=== PATIENT | male | born 1985 | race Hispanic/Latino ===

== ENCOUNTER 2016-04-21 05:21 | Emergency (ER) | payer MEDICAID ==
[2016-04-21] MEDS ORDERED: KEPPRA 1,000 MG/NS 0.75% 100ML 100 ML IV ONE (06:18)
[2016-04-21 07:07] LABS: Urine Drugs of Abuse Note Disclamer
[2016-04-21 07:12] LABS: Bilirubin,Urine NEG (Negative); Blood,Urine SM (Negative); Ketones,Urine NEG (Negative); Leukocyte Esterase,Urine NEG (Negative); Nitrite,Urine NEG (Negative); Protein,Urine <15 mg/dL mg/dL (Negative); Urobilinogen,Urine < 2.0 mg/dL (<2.0)
[2016-04-21 07:43] LABS: Basophils % (Auto) 0.9 % (0.0-1.8); Eosinophils % (Auto) 2.9 % (0.0-4.3); Hematocrit 45.6 % (35.5-45.6); Hemoglobin 14.9 gm/dl (11.8-15.2); Mean Corpuscular HGB Conc 33 % (32-34); Mean Corpuscular Hemoglobin 31 pg (28-32); Mean Corpuscular Volume 95 fl (84-94); Platelet Count 196 K/mm3 (140-440); Red Blood Count 4.82 M/mm3 (3.65-5.03); Red Cell Distribution Width 13.4 % (13.2-15.2); White Blood Count 7.8 K/mm3 (4.5-11.0)
[2016-04-21 08:00] LABS: BUN/Creatinine Ratio 13.75; Blood Urea Nitrogen 11 mg/dL (9-20); Calcium 8.7 mg/dL (8.4-10.2); Carbon Dioxide 25 mmol/L (22-30); Chloride 103.4 mmol/L (98-107); Glucose 89 mg/dL (75-100); Potassium 3.8 mmol/L (3.6-5.0); Sodium 141 mmol/L (137-145)
[2016-04-21 08:07] LABS: Anion Gap 16 mmol/L
--- NOTE | 2016-04-21 08:10 | Emergency Department Report ---
HPI - General Chief Complaint: Seizure Time Seen by Provider: 04/21/16 06:16 - HPI HPI: Chief complaint: Seizure HPI: Patient with a known seizure disorder who according to his mother came home for clot this morning and had a seizure lasting 2-3 minutes. Patient is noncompliant with his seizure medication. Mode of arrival: [EMS] Source: [Patient] nursing note and patient's mother Began: Prior to admission Duration: 2-3 minutes Context: See above Quality: Pain-free Severity: 0 out of 10 Improved with: Nothing Worsened with: Nothing Associated signs and symptoms: None 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 - Surgical History Past Surgical History?: No - Social History Smoking Status: Current Every Day Smoker Substance Use Type: Alcohol - Medications Home Medications: Home Medications Medication Instructions Recorded Confirmed Last Taken Type clonazePAM 2 mg PO TID PRN #20 tablet 10/07/15 04/21/16 02/04/16 Rx levETIRAcetam [Keppra TAB] 500 mg PO BID #60 tablet 04/21/16 Unknown Rx ED Review of Systems ROS: Stated complaint: SEIZURE Other details as noted in HPI ROS Constitutional: No fever ENT: No uri symptoms Cardiovascular: No chest pain Respiratory: No sob or cough GI: No nausea vomiting or diarrhea : No dysuria frequency or urgency, Skin: No rash Neuro: No focal weakness or numbness Valdemar/lymph: No edema Musculoskeletal: No injuries Physical Exam - Physical Exam Vital Signs: Vital Signs 04/21/16 04/21/16 04/21/16 05:36 05:40 05:47 Pulse Rate 58 L 56 L Respiratory 18 18 18 Rate Blood Pressure 97/58 O2 Sat by Pulse 100 99 99 Oximetry 04/21/16 04/21/16 04/21/16 06:00 06:30 06:42 Pulse Rate 58 L Respiratory 19 Rate Blood Pressure 102/57 119/86 119/86 O2 Sat by Pulse 97 91 Oximetry 04/21/16 07:08 Pulse Rate Respiratory Rate Blood Pressure 119/86 O2 Sat by Pulse 81 L Oximetry Physical Exam: GENERAL: The patient is well-developed well-nourished . HEENT: Normocephalic. Atraumatic. Extraocular motions are intact. Patient has moist mucous membranes. The pulse equal round reactive to light. NECK: Supple. No meningitic signs are noted. There is no adenopathy noted. CHEST/LUNGS: Clear to auscultation. There is no respiratory distress noted. HEART/CARDIOVASCULAR: Regular. There is no tachycardia. There is no gallop rub or murmur. ABDOMEN: Abdomen is soft, nontender. Patient has normal bowel sounds. There is no abdominal distention. SKIN: There is no rash. There is no edema. There is no diaphoresis. NEURO: The patient is awake, alert, and oriented. The patient is cooperative. The patient has no focal neurologic deficits. The patient has normal speech. MUSCULOSKELETAL: There is no tenderness or deformity. There is no limitation range of motion. There is no evidence of acute injury. ED Course Vital Signs 04/21/16 04/21/16 04/21/16 05:36 05:40 05:47 Pulse Rate 58 L 56 L Respiratory 18 18 18 Rate Blood Pressure 97/58 O2 Sat by Pulse 100 99 99 Oximetry 04/21/16 04/21/16 04/21/16 06:00 06:30 06:42 Pulse Rate 58 L Respiratory 19 Rate Blood Pressure 102/57 119/86 119/86 O2 Sat by Pulse 97 91 Oximetry 04/21/16 07:08 Pulse Rate Respiratory Rate Blood Pressure 119/86 O2 Sat by Pulse 81 L Oximetry - Reevaluation(s) Reevaluation #1: 04/21/16 08:10 Patient given a gram of Keppra will be discharged home with a prescription for Keppra and follow-up with his primary care doctor. ED Medical Decision Making - Lab Data Result diagrams: 04/21/16 07:26 04/21/16 07:26 Laboratory Tests 04/21/16 04/21/16 06:58 Unknown U Marijuana (THC) Screen Presumptive positive Plasma/Serum Alcohol < 0.01 Critical care attestation.: If time is entered above; I have spent that time in minutes in the direct care of this critically ill patient, excluding procedure time. ED Disposition Clinical Impression: Seizure disorder Disposition: DISCHARGED TO HOME OR SELFCARE Is pt being admited?: No Does the pt Need Aspirin: No Condition: Stable Instructions: Lidocaine (Injection) Prescriptions: levETIRAcetam [Keppra TAB] 500 mg PO BID #60 tablet Referrals: PRIMARY CARE, [Primary Care Provider] - 3-5 Days Time of Disposition: 08:11
[2016-04-21 08:33] VITALS: BP 105/67
== END 2016-04-21 08:36 | disposition home or self-care (01) ==
LOC: ED 05:21
DX: G40.909 Epilepsy, unspecified, not intractable, without status epilepticus (principal); I10 Essential (primary) hypertension; F32.9 Major depressive disorder, single episode, unspecified; F17.200 Nicotine dependence, unspecified, uncomplicated
CPT/HCPCS: 36415; 80048; 80307; 81001; 85025; 96374; 99284; G0480; J1953; 80320

== ENCOUNTER 2017-03-08 21:04 | Emergency (ER) | payer MEDICAID ==
[2017-03-08 22:09] LABS: Basophils % (Auto) 0.6 % (0.0-1.8); Eosinophils % (Auto) 0.7 % (0.0-4.3); Hemoglobin 17.4 gm/dl (11.8-15.2); Mean Corpuscular HGB Conc 34 % (32-34); Mean Corpuscular Hemoglobin 33 pg (28-32); Mean Corpuscular Volume 96 fl (84-94); Platelet Count 248 K/mm3 (140-440); Red Blood Count 5.33 M/mm3 (3.65-5.03); Red Cell Distribution Width 13.5 % (13.2-15.2); White Blood Count 14.5 K/mm3 (4.5-11.0)
[2017-03-08] MEDS ORDERED: ATIVAN IM ONE (22:15)
[2017-03-08 22:26] LABS: Anion Gap 23 mmol/L; BUN/Creatinine Ratio 14; Blood Urea Nitrogen 10 mg/dL (9-20); Calcium 9.4 mg/dL (8.4-10.2); Carbon Dioxide 20 mmol/L (22-30); Chloride 98.2 mmol/L (98-107); Glucose 99 mg/dL (75-100); Potassium 4.1 mmol/L (3.6-5.0); Sodium 137 mmol/L (137-145)
--- NOTE | 2017-03-08 22:48 | Emergency Department Report ---
ED Psych HPI - General Chief Complaint: Psych Stated Complaint: ETOH/SUBSTANCE ABUSE Time Seen by Provider: 03/08/17 21:59 Source: EMS Mode of arrival: Stretcher - History of Present Illness Initial Comments: Patient with history of seizure disorder as well as behavioral issues and psych problems is here after stating that he was drinking someone has been putting meth in his beer he seen any having psychosis but he was awake and alert and oriented 3, no blue no stiff neck no rash no cough or fever Associated Psychiatric Symptoms: racing thoughts, auditory hallucinations, delusions Quality: intermittent, changing over time - Related Data Previous Rx's Medication Instructions Recorded Last Taken Type clonazePAM 2 mg PO TID PRN #20 tablet 10/07/15 02/04/16 Rx levETIRAcetam [Keppra TAB] 500 mg PO BID #60 tablet 04/21/16 Unknown Rx Allergies Allergy/AdvReac Type Severity Reaction Status Date / Time metoclopramide HCl Allergy Unknown Verified 12/20/12 23:00 [From Reglan] chlorpromazine HCl AdvReac Anaphylaxis Verified 12/21/12 00:24 [From Thorazine] haloperidol [From Haldol] AdvReac Anaphylaxis Verified 12/21/12 00:24 haloperidol lactate AdvReac Anaphylaxis Verified 12/21/12 00:24 [From Haldol] lisinopril AdvReac Anaphylaxis Verified 12/21/12 00:24 ED Review of Systems ROS: Stated complaint: ETOH/SUBSTANCE ABUSE Other details as noted in HPI Comment: Unobtainable due to pts medical conditions Constitutional: denies: diaphoresis, fever, malaise, weakness Respiratory: denies: shortness of breath, SOB with exertion, SOB at rest, stridor, wheezing Cardiovascular: denies: chest pain, palpitations, edema, syncope ED Past Medical Hx - Past Medical History Hx Hypertension: Yes Hx Congestive Heart Failure: No Hx Diabetes: No Hx Arthritis: No Hx Seizures: Yes Hx Psychiatric Treatment: Yes (history of overdosing, history of suicidal ideations, depression) Hx Asthma: No Additional medical history: Dystonia, Frontal Lobe Injury 08/19/2002, Cognitive Memory Difficulties since allergic reaction to Lisinopril, 06/2012, 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 - Social History Smoking Status: Never Smoker Substance Use Type: Alcohol, Prescribed - Medications Home Medications: Home Medications Medication Instructions Recorded Confirmed Last Taken Type clonazePAM 2 mg PO TID PRN #20 tablet 10/07/15 04/21/16 02/04/16 Rx levETIRAcetam [Keppra TAB] 500 mg PO BID #60 tablet 04/21/16 Unknown Rx ED Physical Exam - General Limitations: Altered Mental Status General appearance: alert, in no apparent distress, anxious - Head Head exam: Present: atraumatic, normocephalic - Eye Eye exam: Present: PERRL, EOMI - ENT ENT exam: Present: normal exam, normal orophraynx - Neck Neck exam: Present: normal inspection. Absent: meningismus - Respiratory Respiratory exam: Present: normal lung sounds bilaterally. Absent: respiratory distress, wheezes, chest wall tenderness, accessory muscle use - Cardiovascular Cardiovascular Exam: Present: regular rate, normal heart sounds - GI/Abdominal GI/Abdominal exam: Present: soft. Absent: distended, tenderness, guarding, rebound, mass, pulsatile mass - Extremities Exam Extremities exam: Present: normal capillary refill. Absent: calf tenderness - Back Exam Back exam: Absent: CVA tenderness (L) - Neurological Exam Neurological exam: Absent: motor sensory deficit - Psychiatric Psychiatric exam: Present: anxious, manic, other (psychosis flight of ideas) ED Course Vital Signs 03/08/17 21:39 Temperature 97.5 F L Pulse Rate 115 H Respiratory 22 Rate Blood Pressure 145/87 [Left] O2 Sat by Pulse 100 Oximetry ED Medical Decision Making - Lab Data Result diagrams: 03/08/17 21:52 03/08/17 21:52 - Radiology Data Radiology results: image reviewed interpreted by me: No acute process - Medical Decision Making Patient will need 1013 and psych evaluation given his psychosis flight of ideas and delusions, drug screen was positive for meth and benzos was some alcohol as well. Patient read further evaluation for polysubstance abuse and psychosis he is medically cleared for psychiatric eval, was noted to have a mildly elevated WBC but no evidence of infection this likely is due to stress chest x-ray and urinalysis were negative patient is awaiting further evaluation by psychiatry in the ED Critical care attestation.: If time is entered above; I have spent that time in minutes in the direct care of this critically ill patient, excluding procedure time. ED Disposition Clinical Impression: Psychosis, Polysubstance abuse Disposition: [id number]/TX-[id number] PSY HOSP/PSY UNIT Is pt being admited?: Yes Condition: Stable Referrals: ANUSHA VOSS MD [Primary Care Provider] - 3-5 Days Time of Disposition: 00:55
[2017-03-08 22:56] LABS: Urine Drugs of Abuse Note Disclamer
[2017-03-08 23:03] LABS: Bilirubin,Urine NEG (Negative); Blood,Urine NEG (Negative); Ketones,Urine TR mg/dL (Negative); Leukocyte Esterase,Urine TR (Negative); Mucus,Urine FEW /HPF; Nitrite,Urine NEG (Negative); Protein,Urine <15 mg/dL mg/dL (Negative); Urobilinogen,Urine < 2.0 mg/dL (<2.0)
[2017-03-08] MEDS ORDERED: BENADRYL PO ONE (23:54)
[2017-03-08] MEDS ORDERED: NACL 0.9% 1000 ML 1,000 ML IV ONE (23:56)
[2017-03-09] MEDS ORDERED: ATIVAN IV ONE (01:50)
[2017-03-09] MEDS ORDERED: ATIVAN ONE (05:32)
[2017-03-09] MEDS ORDERED: GEODON IM ONE ×2 (08:39→09:04)
[2017-03-09] MEDS ORDERED: KEPPRA PO SCH (10:00)
--- NOTE | 2017-03-09 16:47 | Consultation ---
History of Present Illness - Reason for Consult Reason for consult: charley consult - Chief Complaint Chief complaint: cc" psychiatric" 31 year old WM presents to [facility]. We have been asked to see the patient for mental health eval. Patient was somewhat sedated when I spoke to him after receiving a PRN earlier that day. He notes that he brought himself to after being worried that someone had spiked his etoh drink with meth. Despite this, today he notes no depression or psychosis. He denies any SI/HI/AH /VH. He states that he has no grandiosity or delusional thought process. He denies any current withdrawal symptoms. He states that he doesn't use illicit drugs but does admit to drinking 2-3 beer at a time but not daily. He also notes no mental health history but states that he's been on thorazine before. Medications and Allergies Allergies Allergy/AdvReac Type Severity Reaction Status Date / Time metoclopramide HCl Allergy Unknown Verified 12/20/12 23:00 [From Reglan] chlorpromazine HCl AdvReac Anaphylaxis Verified 12/21/12 00:24 [From Thorazine] haloperidol [From Haldol] AdvReac Anaphylaxis Verified 12/21/12 00:24 haloperidol lactate AdvReac Anaphylaxis Verified 12/21/12 00:24 [From Haldol] lisinopril AdvReac Anaphylaxis Verified 12/21/12 00:24 Home Medications Medication Instructions Recorded Confirmed Last Taken Type clonazePAM 2 mg PO TID PRN #20 tablet 10/07/15 03/09/17 02/04/16 Rx levETIRAcetam [Keppra TAB] 500 mg PO BID #60 tablet 04/21/16 03/09/17 Unknown Rx Active Meds: Active Medications Levetiracetam (Keppra) 500 mg PO BID JONNY Stop: 03/14/17 09:59 Last Admin: 03/09/17 11:56 Dose: 500 mg Past psychiatric history - Past Medical History Past Medical History: seizures, other (states he has broken rib/shoulder history ) - past Psychiatric treatment and history psychiatric treatment history: Inpt: none outpt psych: none no SA history no family history of psych no abuse history - Social History Social history: other (lives with mom and has a good relationship with her, 11th grade [employer], not working, not dating, was [facility]ring at [employer]) Mental Status Exam - Vital signs Last Vital Signs Temp 97.3 F L 03/09/17 01:03 Pulse 98 H 03/09/17 01:03 Resp 18 03/09/17 01:03 BP 145/58 03/09/17 01:03 Pulse Ox 100 03/09/17 01:03 - Exam Orientation: time, place, person Affect: anxious Mood: appropriate Thought content: other (? paranoia) Thought Process: Circumstantial, Tangential Perceptions: none Speech: slow Concentration: distractible Motor activity: restless Level of consciousness: sedated Memory: Intact Interaction: cooperative Mini mental status exam(if necessary): 24-30 (despite the sedation level patient was able to answer majority of my memory/cognition questions) Results Result Diagrams: 03/08/17 21:52 03/08/17 21:52 Abnormal lab results 03/08/17 03/08/17 03/08/17 Range/Units 21:52 21:52 21:52 WBC 14.5 H (4.5-11.0) K/mm3 RBC 5.33 H (3.65-5.03) M/mm3 Hgb 17.4 H (11.8-15.2) gm/dl Hct 51.0 H (35.5-45.6) % MCV 96 H (84-94) fl MCH 33 H (28-32) pg Vinton # 1.0 H (0.0-0.8) K/mm3 Seg Neutrophils % 73.6 H (40.0-70.0) % Seg Neutrophils # 10.7 H (1.8-7.7) K/mm3 Carbon Dioxide 20 L (22-30) mmol/L Creatinine 0.7 L (0.8-1.5) mg/dL Salicylates 0.6 L (2.8-20.0) mg/dL Phenytoin (10.0-20.0) ug/mL 03/08/17 Range/Units 21:52 WBC (4.5-11.0) K/mm3 RBC (3.65-5.03) M/mm3 Hgb (11.8-15.2) gm/dl Hct (35.5-45.6) % MCV (84-94) fl MCH (28-32) pg Vinton # (0.0-0.8) K/mm3 Seg Neutrophils % (40.0-70.0) % Seg Neutrophils # (1.8-7.7) K/mm3 Carbon Dioxide (22-30) mmol/L Creatinine (0.8-1.5) mg/dL Salicylates (2.8-20.0) mg/dL Phenytoin 1.3 L (10.0-20.0) ug/mL All other labs normal. Assessment and Plan Assessment and plan: 31 year old WM presents to [facility]. We have been asked to see the patient for mental health eval. Patient was somewhat sedated when I spoke to him after receiving a PRN earlier that day. He notes that he brought himself to after being worried that someone had spiked his etoh drink with meth. Patient denied all symptoms of psychosis. He denied any depression or judy A/P 1. psychosis secondary to substances (unknown)- will obtain collateral from mom before making any judgments on whether this patient has a true psych history or his thoughts are being influenced by substance placed into his etoh drink. 1. eval for unknown substance use- will need collateral. patient is positive for thc, amph, benzo- need to determine true extent of his use. he also notes that he takes klonopin at home for his seizures- therefore there is a possibility that he could go through withdrawal- will need to watch for this while waiting on confirmation that is truly prescribed this med. patient currently being treated with [facility] protocol in meantime for benzo withdrawal.
[2017-03-10] MEDS ORDERED: ATIVAN IM PRN (08:13)
--- NOTE | 2017-03-10 08:16 | Event Note ---
Date: 03/10/17 Patient verbally agitated, aggressive with staff, does not respond to verbal de- escalation techniques, or show of force. Patient ordered for when necessary Ativan, as well as seclusion for his safety and for patient's safety as well. Hospital policies for monitoring will be followed. Vital Signs 03/08/17 03/09/17 03/09/17 21:39 01:03 08:29 Temperature 97.5 F L 97.3 F L 97.9 F Pulse Rate 115 H 98 H 92 H Respiratory 22 18 20 Rate Blood Pressure 145/87 145/58 120/81 [Left] O2 Sat by Pulse 100 100 100 Oximetry 03/09/17 17:38 Temperature Pulse Rate Respiratory 20 Rate Blood Pressure [Left] O2 Sat by Pulse 100 Oximetry Labs 03/08/17 03/08/17 03/08/17 21:33 21:52 21:52 WBC RBC Hgb Hct MCV MCH MCHC RDW Plt Count Lymph % (Auto) Hawkins % (Auto) Eos % (Auto) Baso % (Auto) Lymph # Hawkins # Eos # Baso # Seg Neutrophils % Seg Neutrophils # Sodium 137 Potassium 4.1 Chloride 98.2 Carbon Dioxide 20 L Anion Gap 23 BUN 10 Creatinine 0.7 L Estimated GFR > 60 BUN/Creatinine Ratio 14 Glucose 99 POC Glucose 84 Calcium 9.4 Urine Color Urine Turbidity Urine pH Ur Specific [place] Urine Protein Urine Glucose (UA) Urine Ketones Urine Blood Urine Nitrite Urine Bilirubin Urine Urobilinogen Ur Leukocyte Esterase Urine WBC (Auto) Urine RBC (Auto) Urine Mucus Salicylates Urine Opiates Screen Urine Methadone Screen Acetaminophen Ur Barbiturates Screen Phenytoin Ur Phencyclidine Scrn Ur Amphetamines Screen U Benzodiazepines Scrn Urine Cocaine Screen U Marijuana (THC) Screen Drugs of Abuse Note Plasma/Serum Alcohol 0.03 03/08/17 03/08/17 03/08/17 21:52 21:52 21:52 WBC 14.5 H RBC 5.33 H Hgb 17.4 H Hct 51.0 H MCV 96 H MCH 33 H MCHC 34 RDW 13.5 Plt Count 248 Lymph % (Auto) 18.0 Hawkins % (Auto) 7.1 Eos % (Auto) 0.7 Baso % (Auto) 0.6 Lymph # 2.6 Hawkins # 1.0 H Eos # 0.1 Baso # 0.1 Seg Neutrophils % 73.6 H Seg Neutrophils # 10.7 H Sodium Potassium Chloride Carbon Dioxide Anion Gap BUN Creatinine Estimated GFR BUN/Creatinine Ratio Glucose POC Glucose Calcium Urine Color Urine Turbidity Urine pH Ur Specific [place] Urine Protein Urine Glucose (UA) Urine Ketones Urine Blood Urine Nitrite Urine Bilirubin Urine Urobilinogen Ur Leukocyte Esterase Urine WBC (Auto) Urine RBC (Auto) Urine Mucus Salicylates 0.6 L Urine Opiates Screen Urine Methadone Screen Acetaminophen < 15.0 Ur Barbiturates Screen Phenytoin Ur Phencyclidine Scrn Ur Amphetamines Screen U Benzodiazepines Scrn Urine Cocaine Screen U Marijuana (THC) Screen Drugs of Abuse Note Plasma/Serum Alcohol 03/08/17 03/08/17 03/08/17 21:52 Unknown Unknown WBC RBC Hgb Hct MCV MCH MCHC RDW Plt Count Lymph % (Auto) Hawkins % (Auto) Eos % (Auto) Baso % (Auto) Lymph # Hawkins # Eos # Baso # Seg Neutrophils % Seg Neutrophils # Sodium Potassium Chloride Carbon Dioxide Anion Gap BUN Creatinine Estimated GFR BUN/Creatinine Ratio Glucose POC Glucose Calcium Urine Color Yellow Urine Turbidity Clear Urine pH 7.0 Ur Specific [place] 1.009 Urine Protein <15 mg/dl Urine Glucose (UA) Neg Urine Ketones Tr Urine Blood Neg Urine Nitrite Neg Urine Bilirubin Neg Urine Urobilinogen < 2.0 Ur Leukocyte Esterase Tr Urine WBC (Auto) 3.0 Urine RBC (Auto) 1.0 Urine Mucus Few Salicylates Urine Opiates Screen Presumptive negative Urine Methadone Screen Presumptive negative Acetaminophen Ur Barbiturates Screen Presumptive negative Phenytoin 1.3 L Ur Phencyclidine Scrn Presumptive negative Ur Amphetamines Screen Presumptive positive U Benzodiazepines Scrn Presumptive positive Urine Cocaine Screen Presumptive negative U Marijuana (THC) Screen Presumptive positive Drugs of Abuse Note Disclamer Plasma/Serum Alcohol
--- NOTE | 2017-03-10 08:18 | XRay Report ---
FINAL REPORT EXAM: XRAY CHEST SINGLE VIEW HISTORY: x TECHNIQUE: PA and lateral chest radiographs PRIORS: 04/12/2015 FINDINGS: No mediastinal shift. Cardiac silhouette is not enlarged. The most inferior portions of the lungs are excluded from the field of view. No pneumothorax, effusion, or focal pulmonary opacity. No acute skeletal finding. IMPRESSION: No focal pulmonary opacity.
[2017-03-10 12:13] VITALS: BP 138/96
[2017-03-10] MEDS ORDERED: KEPPRA PO SCH (15:00)
--- NOTE | 2017-03-10 15:33 | Progress Note ---
Subjective - Reason for Consult Consult date: 03/10/17 Reason for consult: Psychiatry Follow-up - Chief Complaint Chief complaint: "My marijuana and drink was laced with meth" 31 year old WM presents to [facility]. Today patient is calm and calm during the assessment. He is adamant about not having a mental health dx. Per collateral from him mother Seymour Covarrubias at [phone], she stated that her son's drink and his marijuana cigarette was laced with "meth." She stated that' s the reason he was acting strange on arrival to [facility]. She confirmed that her son does not have a mental health dx. She denies that he son use any other recreational drug other than marijuana. She stated that he has a hx of seizures and dystonia that's managed by his neurologist. The patient denies SI/HI's and AVH's. He stated that he smoke marijuana often and take Klonopin. Mental Status Exam - Vital signs Last Vital Signs Temp 98.2 F 03/10/17 07:58 Pulse 115 H 03/10/17 07:58 Resp 20 03/10/17 10:39 BP 138/96 03/10/17 07:58 Pulse Ox 100 03/10/17 10:39 - Exam Narrative exam: MSE: Appearance: calm, cooperative Behavior: regular eye contact Speech: regular rate and tone Mood: "okay" Affect: congruent to mood Thought Process: linear Thought Content: denies SI/HI's and AVH's Motor Activity: sitting up in bed Cognition: A/O x3 Insight: fair Judgment: fair Assessment and Plan Impression: Substance Induced Psychosis. Substance Use DO (marijuana). Today patient is calm and calm during the assessment. The psychosis has resolved. Positive for benzos, marijauna, and amphetamines. Medical: Per collateral hx of Seizures/Dystonia Recommendation/Plan: Rescind 1013. Patient can follow-up with his Neurologist once discharged. Log Turner involvement, patient will need transportation to his residence. Discussed the importance to abstain from recreational drug use with patient.
== END 2017-03-10 17:50 ==
LOC: EEVIPCON 21:04 → ED 21:04
DX: F29 Unspecified psychosis not due to a substance or known physiological condition (principal); F19.10 Other psychoactive substance abuse, uncomplicated; I10 Essential (primary) hypertension
CPT/HCPCS: 36415; 71020; 80048; 80185; 80307; 81001; 82962; 85025; 96361; 96372; 96374; 99285; G0480; J2060; J3486; J7030; 80320

== ENCOUNTER 2020-11-25 17:58 | Emergency (ER) | payer MEDICAID ==
[2020-11-25 20:23] VITALS: BP 129/89
--- NOTE | 2020-11-25 20:34 | Event Note ---
ED Screening Note Date of service: 11/25/20 Time: 20:31 ED Screening Note: 35-year-old male patient with history of seizure disorder presents to the emergency department via EMS status post seizure. Patient states he was at the grocery store when his seizure occurred. Patient recalls being in a standing position prior to onset of seizure activity. Patient is unsure how long his seizure lasted. States he has been out of all of his medications for approximately 24 hours. He is currently complaining of nausea and diffuse body aches. Takes Vimpat for seizures. He is also on gabapentin, clonazepam, and tramadol. Tachycardic in triage. General: Awake, appropriately interactive, no acute distress. Neck: Supple. Full range of motion intact. Cardiovascular: Normal peripheral perfusion. Pulmonary: No respiratory distress. Patient is speaking normally without use of accessory muscles. Skin: No apparent rashes or lesions. Neurological: No facial asymmetry. Speech is clear. Follows commands. Patient is alert and oriented. Musculoskeletal: Moves all four extremities spontaneously with normal range of motion. Psych: Cooperative. Appropriate mood and affect. Ordered labs and urinalysis. Requested student liaison officer and peripheral IV access. I have greeted and performed a focused rapid initial assessment of this patient. A comprehensive ED assessment and evaluation of the patient, analysis of all test results, and completion of the medical decision-making process will be c onducted by additional ED providers. This initial assessment/diagnostic orders/clinical plan/treatment(s) is/are subject to change based on patients health status, clinical progression and re-assessment. Further treatment and workup at subsequent clinical provider's discretion. Patient/guardian urged not to elope from the ED as their condition may be serious if not clinically assessed and managed.
[2020-11-25 20:53] LABS: Basophils # (Auto) 0.1 K/mm3 (0.0-0.1); Eosinophils # (Auto) 0.2 K/mm3 (0.0-0.4); Eosinophils % (Auto) 3.2 % (0.0-4.3); Hematocrit 43.3 % (35.5-45.6); Hemoglobin 14.6 gm/dl (11.8-15.2); Lymphocytes # (Auto) 2.3 K/mm3 (1.2-5.4); Lymphocytes % (Auto) 30.3 % (13.4-35.0); Mean Corpuscular HGB Conc 34 % (32-34); Mean Corpuscular Volume 95 fl (84-94); Monocytes # (Auto) 0.7 K/mm3 (0.0-0.8); Monocytes % (Auto) 8.8 % (0.0-7.3); Platelet Count 264 K/mm3 (140-440); Red Blood Count 4.53 M/mm3 (3.65-5.03); Red Cell Distribution Width 12.8 % (13.2-15.2)
--- NOTE | 2020-11-25 21:00 | Emergency Department Report ---
HPI - General Chief Complaint: Seizure Time Seen by Provider: 11/25/20 20:42 - HPI HPI: Waiting room The patient is a 35-year-old male present with a chief complaint of seizure. Patient has a history of seizures and states he believes he may have missed his dose of Vimpat last night and today. Patient states he had a seizure today and injured his right forehead during the fall. Patient states his last seizure before today occurred 6 to 8 months ago. 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 - Surgical History Past Surgical History?: No - Family History Family history: no significant - Social History Smoking Status: Current Some Day Smoker (2 cigarettes daily) Substance Use Type: None (Denies illicit drug use) - Medications Home Medications: Home Medications Medication Instructions Recorded Confirmed Last Taken Type clonazePAM 2 mg PO TID PRN #20 tablet 10/07/15 03/09/17 02/04/16 Rx levETIRAcetam [Keppra TAB] 500 mg PO BID #60 tablet 04/21/16 03/09/17 Unknown Rx Lacosamide [Vimpat] 100 mg PO Q12HR #60 tablet 11/25/20 Unknown Rx clonazePAM [clonazePAM Rapdis] 0.25 mg PO BID PRN #2 tab.rapdis 11/25/20 Unknown Rx ED Review of Systems ROS: Stated complaint: SEIZURE Other details as noted in HPI Constitutional: no symptoms reported Eyes: denies: eye pain ENT: denies: throat pain Respiratory: no symptoms reported Cardiovascular: denies: chest pain Endocrine: no symptoms reported Gastrointestinal: denies: abdominal pain Genitourinary: denies: dysuria Musculoskeletal: denies: back pain Neurological: denies: confusion Physical Exam - Physical Exam Vital Signs: Vital Signs 11/25/20 20:18 Temperature 98.0 F Pulse Rate 104 H Respiratory 18 Rate Blood Pressure 129/89 O2 Sat by Pulse 100 Oximetry Physical Exam: GENERAL: The patient is well-developed well-nourished male sitting in chair not appearing to be in acute distress. [] HEENT: Normocephalic. Abrasions to the right side of forehead. Extraocular motions are intact. Patient has moist mucous membranes. NECK: Supple. Trachea midline CHEST/LUNGS: Clear to auscultation. There is no respiratory distress noted. HEART/CARDIOVASCULAR: Regular. There is no tachycardia. There is no gallop rub or murmur. ABDOMEN: Abdomen is soft, nontender. Patient has normal bowel sounds. There is no abdominal distention. SKIN: There is no rash. There is no edema. There is no diaphoresis. NEURO: The patient is awake, alert, and oriented. The patient is cooperative. The patient has no focal neurologic deficits. The patient has normal speech and gait. GCS 15 MUSCULOSKELETAL: There is no evidence of acute injury. ED Course Vital Signs 11/25/20 20:18 Temperature 98.0 F Pulse Rate 104 H Respiratory 18 Rate Blood Pressure 129/89 O2 Sat by Pulse 100 Oximetry ED Medical Decision Making - Lab Data Result diagrams: 11/25/20 20:36 11/25/20 20:36 - Differential Diagnosis Seizure Critical care attestation.: If time is entered above; I have spent that time in minutes in the direct care of this critically ill patient, excluding procedure time. ED Disposition Clinical Impression: Seizure, Closed head injury Disposition: 07 LEFT AWOL/ELOPED Is pt being admited?: No Does the pt Need Aspirin: No Condition: Undetermined Additional Instructions: Return to the emergency department should you develop worsening symptoms, inability to tolerate food or liquids, high fever or any other concerns Prescriptions: clonazePAM [clonazePAM Rapdis] 0.25 mg PO BID PRN #2 tab.rapdis PRN Reason: Anxiety Lacosamide [Vimpat] 100 mg PO Q12HR #60 tablet Referrals: Your, neurologist [Other] - 3-5 Days Time of Disposition: 21:20 (Patient eloped)
[2020-11-25 21:11] LABS: Alanine Aminotransferase 15 units/L (7-56); Albumin 4.4 g/dL (3.9-5); BUN/Creatinine Ratio 18; Blood Urea Nitrogen 14 mg/dL (9-20); Calcium 9.3 mg/dL (8.4-10.2); Hemolysis Index 10
== END 2020-11-25 21:30 | disposition left against medical advice (07) ==
LOC: ED 17:58
DX: S09.90XA Unspecified injury of head, initial encounter (principal); R56.9 Unspecified convulsions; I10 Essential (primary) hypertension; R45.851 Suicidal ideations; F32.9 Major depressive disorder, single episode, unspecified; G24.9 Dystonia, unspecified; R41.3 Other amnesia; F17.290 Nicotine dependence, other tobacco product, uncomplicated; Z88.8 Allergy status to other drugs, medicaments and biological substances; X58.XXXA Exposure to other specified factors, initial encounter; Y93.89 Activity, other specified; Y92.89 Other specified places as the place of occurrence of the external cause; Y99.8 Other external cause status
CPT/HCPCS: 36415; 80053; 80320; 83735; 85025; 99283; G0480